=== PATIENT | female | born 1985 | race Caucasian/White ===

== ENCOUNTER 2017-01-02 19:37 | Inpatient (IN) | payer OTHER ==
[~2017-01-02] VITALS: Ht 170.2 cm; Wt 76.4 kg
--- NOTE | ~2017-01-02 | OR ---
PATIENT'S NAME: BISHOP ASENCIO AGE: 31 Y [address] ROOM: [place] [address] LOCATION: [facility] ADMIT DATE: 01/02/2017 OR/Procedure Report DISCHARGE DATE: FAMILY PHYSICIAN: DAWOOD JACOBS MD ATTENDING PHYSICIAN: Radha Bach SURGEON: Radha Bach MD REAL ESTATE PROFESSOR: DATE OF PROCEDURE: 01/02/2017 DICTATION ISSUE -- Static on phone line. Dr. Bach, please complete the missing information. 01/04/2017 -- kld PREOPERATIVE DIAGNOSIS: 1. Intrauterine at 38 weeks and 2 days. 2. Labor. 3. heart rate decelerations. POSTOPERATIVE DIAGNOSES: 1. Intrauterine at 38 weeks and 2 days. 2. Labor. 3. heart rate decelerations. PROCEDURE: Low vacuum-assisted vaginal delivery. ESTIMATED BLOOD LOSS: 300 mL. ANESTHESIA: Epidural. FINDINGS: Male , score 7 and 9. Weight 7 pounds 1 ounce. Intact placenta, 3-vessel cord. Second-degree perineal laceration. Clear amniotic fluid. INDICATIONS: This patient is a 31-year-old, G5, P2-0-2-2 female, who presented in active labor. She was complete within a couple of hours. She underwent expulsive efforts for a couple of contractions. She was noted to be straight OP. I attempted to rotate the baby and the baby had heart rate deceleration down to the 80s, then had some recurrent heart rate decelerations down to the 80s, and the decision was made for a low vacuum- assisted vaginal delivery. The mushroom cup vacuum was chosen. Estimated weight was 3200 g. The baby was OP. Pelvis was adequate. Anesthesia was adequate. The bladder had just been emptied with a removal of Gar catheter. PROCEDURE: The mushroom cup vacuum was chosen and placed at a point of maximum flexion. Steady downward pull was used. The baby actually rotated to OA at that point, and the vacuum did have a pop-off, although I did not get a PATIENT'S NAME: BISHOP ASENCIO AGE: 31 Y [address] ROOM: [place] [address] LOCATION: [facility] ADMIT DATE: 01/02/2017 OR/Procedure Report DISCHARGE DATE: FAMILY PHYSICIAN: DAWOOD JACOBS MD ATTENDING PHYSICIAN: Radha aBch very good seal, and then pulled one more time with the vacuum again and again could not get a good seal and popped off. At that point, the patient started to make progress and the heart rate was correcting, so I allowed her to push, then she was +4 station and could not quite deliver the vertex. So, I placed the vacuum again at the same point of maximum flexion and pulled once and the baby's head delivered and the vacuum was disengaged. The cord was clamped and cut. The was handed to awaiting team. A cord blood pH were drawn. The placenta delivered via manual traction. Cervix, vagina, and perineum were examined. A second-degree perineal laceration was noted and was repaired in a standard fashion with Vicryl suture. Complications, none. Condition of the patient is stable. MD DARRELL BRADLEY/modl /[id number] d: 01/03/17 0007 t: 01/12/17 1759, OPERATIVE SUMMARY
[2017-01-02 20:23] LABS: BASOPHIL % 0.1 %; EOSINOPHIL % 0.3 %; HEMATOCRIT 37.5 % (33.0-46.0); IMMATURE GRANULOCYTE % 0.4 %; LYMPHOCYTE # 1.6 K/uL (0.8-4.0); LYMPHOCYTE % 14.7 %; MCH 31.6 pg (27.0-34.0); MCHC 34.7 gm/dL (32.0-36.5); MONOCYTE # 0.5 K/uL (0.0-1.0); MONOCYTE % 4.5 %; MPV 9.9 fl (9.4-12.4); NEUTROPHIL # (ANC) 8.6 K/uL (1.8-7.8); NRBC % 0 /100WBC (0-0.00); PLATELET COUNT 202 K/uL (150-450); RBC 4.12 M/uL (3.50-5.50); RDW-CV 13.8 % (11.9-14.6); WBC 10.8 K/uL (4.0-11.0)
[2017-01-02] MEDS ORDERED: PRENATAL 1+1)(P1 TAB PO (20:30)
[2017-01-02 23:02] LABS: PCO2 57 mmHg (35-45)
[2017-01-02 23:03] LABS: BICARBONATE 23.9 mmol/L (18.0-23.0); PO2 26 mmHg (80-90)
[2017-01-03 05:49] LABS: BASOPHIL % 0.2 %; EOSINOPHIL % 0.1 %; HEMATOCRIT 32.8 % (33.0-46.0); HEMOGLOBIN 11.1 g/dL (11.0-15.0); IMMATURE GRANULOCYTE # 0.1 K/uL (0.0-0.3); IMMATURE GRANULOCYTE % 0.5 %; LYMPHOCYTE # 1.9 K/uL (0.8-4.0); LYMPHOCYTE % 10.7 %; MCH 30.8 pg (27.0-34.0); MCHC 33.8 gm/dL (32.0-36.5); MCV 91.1 fl (83.0-98.0); MONOCYTE # 0.7 K/uL (0.0-1.0); MPV 9.9 fl (9.4-12.4); NEUTROPHIL # (ANC) 14.7 K/uL (1.8-7.8); NEUTROPHIL % 84.5 %; NRBC % 0 /100WBC (0-0.00); PLATELET COUNT 167 K/uL (150-450); RDW-CV 13.7 % (11.9-14.6); WBC 17.5 K/uL (4.0-11.0)
--- NOTE | 2017-01-03 06:07 | NUR ---
VSS. Pain rating 2. Last had Motrin at 0140 and 1 Percocet at 0505. Fundus 2 down, firm, midline. Small flow. Nipples intact. Using shield and nipple evertor. Has voided x2 w/o difficulty since galeano dc'd. Showered and tided without problems. Using tea pads for perineal swelling. Saline lock remains in to left hand.
[2017-01-05] MEDS ORDERED: DERMOPLAST SPRA56 GM (10:14)
[2017-01-05] MEDS ORDERED: MOTRIN800 MG PO (10:14)
[2017-01-05] MEDS ORDERED: PERCOCET 5-3251 EACH PO (10:15)
== END 2017-01-05 15:15 | disposition disaster alternative care site (69) | DRG 775 ==
LOC: GOBS 19:37 → GOBM 19:37 → GOBS 19:40
PROVIDERS: ADMIT Obstetrics & Gynecology
PROC: 10D07Z6 Extraction of Products of Conception, Vacuum, Via Natural or Artificial Opening (ICD-10-PCS; principal; 2017-01-04)
PROC: 0KQM0ZZ Repair Perineum Muscle, Open Approach (ICD-10-PCS; principal; 2017-01-04)
DX: O42.02 Full-term premature rupture of membranes, onset of labor within 24 hours of rupture (principal); O99.824 Streptococcus B carrier state complicating childbirth; O76 Abnormality in fetal heart rate and rhythm complicating labor and delivery; O70.1 Second degree perineal laceration during delivery; Z3A.38 38 weeks gestation of pregnancy; Z37.0 Single live birth
CPT/HCPCS: J2001; J2540; J2590; J3010; J7120